=== PATIENT | female | born 1950 ===

== ENCOUNTER → 2020-02-26 08:36 | Outpatient (POV) | payer SELFPAY | PROVIDERS: Visit Provider Dermatology | DX: Z00.00 Encounter for general adult medical examination without abnormal findings (principal) ==

== ENCOUNTER 2023-08-16 14:39 | Outpatient (POV) | payer SELFPAY | END 2023-08-16 23:59 | disposition home or self-care (01) | LOC: SC 14:40 | PROVIDERS: PCP Dermatology; Visit Provider Dermatology | DX: Z00.00 Encounter for general adult medical examination without abnormal findings (principal) ==

== ENCOUNTER 2023-11-22 15:10 | Outpatient (POV) | payer SELFPAY | END 2023-11-22 23:59 | disposition home or self-care (01) | LOC: SC 15:10 | PROVIDERS: Visit Provider Dermatology | DX: Z00.00 Encounter for general adult medical examination without abnormal findings (principal) ==